=== PATIENT | female | born 1995 | race Caucasian/White ===

== ENCOUNTER → 2020-03-06 08:57 | Outpatient (CLI) | payer OTHER, SELFPAY ==
[2020-03-06 10:17] LABS: Add Manual Diff / Slide Review NO; Basophils Absolute Auto 0 /uL (0-100); Basophils Percent Auto 0.2 % (0-2); Eosinophils Absolute Auto 0 /uL (0-450); Eosinophils Percent Auto 0.3 % (2-4); Hematocrit 37.6 % (36-46); Hemoglobin 12.8 g/dL (12.0-16.0); Lymphocytes Absolute Auto 1500 /uL (1100-4500); Lymphocytes Percent Auto 19.4 % (25-40); Mean Corpuscular HGB Conc 34.1 % (30-36); Mean Corpuscular Hemoglobin 31.7 PG (26-34); Mean Corpuscular Volume 93.1 fL (80-100); Monocytes Absolute Auto 700 /uL (0-900); Monocytes Percent Auto 8.3 % (3-14); Neutrophils Absolute Auto 5600 /uL (1500-7000); Neutrophils Percent Auto 71.8 % (50-75); Platelet Count 192 X10^3/uL (150-400); Red Blood Cell Count 4.04 X10^6/uL (4.0-5.2); Red Cell Distribution Width 12.7 % (11.6-14.8); White Blood Cell Count 7.9 X10^3/uL (4.5-11.0)
[2020-03-06 11:22] LABS: Appearance Urine UA CLEAR; Bilirubin Urine UA NEGATIVE (NEGATIVE); Color Urine UA YELLOW; Glucose Urine UA NEGATIVE (Negative); Ketones Urine UA NEGATIVE (NEGATIVE); Leukocyte Esterase Urine UA NEGATIVE (NEGATIVE); Nitrite Urine UA NEGATIVE (Negative); Occult Blood Urine UA NEGATIVE (Negative); Protein Urine UA NEGATIVE (Negative); Specific Gravity Urine UA 1.015 (1.000-1.035); Urobilinogen Urine UA 0.2 E.U./dL (0.2)
[2020-03-06 11:40] LABS: pH Urine UA 7.5 (4.5-8.0)
[2020-03-06 11:42] LABS: Hepatitis B Surface Antigen NEGATIVE s/c (NEGATIVE); Rubella Antibody IgG 15.1 IU/mL (>15)
[2020-03-06 12:03] LABS: HIV 1 & 2 Ab/Ag 4th Gen Combo NEGATIVE (NEGATIVE); Hep C Virus Ab w/Reflex Quant NEGATIVE s/c (NEGATIVE)
[2020-03-06 13:01] LABS: Urine N gonorrhoeae NOT DETECTED
[2020-03-06 17:16] LABS: Urine Chlamydia NOT DETECTED
[2020-03-07 10:29] LABS: RPR Screen Non Reactive (Non Reactive); Varicella IgG Antibody 3855 index (Immune >165)
== END ==
PROVIDERS: PCP Registered Nurse; Referring Provider Specialist; Visit Provider Specialist
DX: Z34.81 Encounter for supervision of other normal pregnancy, first trimester (principal)
CPT/HCPCS: 36415; 81003; 85025; 86592; 86762; 86787; 86803; 86850; 86900; 86901; 87086; 87340; 87389; 87491; 87591

== ENCOUNTER → 2020-05-08 08:56 | Outpatient (CLI) | payer OTHER, SELFPAY ==
[2020-05-10 20:07] LABS: AFP, Serum 43.7 ng/mL (.); Calc Gestational Age Ultrasound (.); Inhibin A, Dimeric 102.85 pg/mL (.); Inhibin A, MoM 0.58 (.); Maternal Ethnicity Caucasian (.); Maternal Weight 132 lbs (.); Number of Fetuses No (.); OSBR Risk 1 IN 10000 (.); Results Report (.); Test Results *Screen Negative* (.); hCG, Serum 32168 mIU/mL (.)
== END ==
PROVIDERS: PCP Registered Nurse; Referring Provider Specialist; Visit Provider Specialist
DX: Z34.82 Encounter for supervision of other normal pregnancy, second trimester (principal); Z3A.17 17 weeks gestation of pregnancy
CPT/HCPCS: 36415; 82105; 82677; 84702; 86336

== ENCOUNTER → 2020-05-26 09:16 | Outpatient (CLI) | payer OTHER, SELFPAY ==
--- NOTE | 2020-05-26 09:17 | DI.US.S_ITS ---
PROCEDURE: US OB >= 14 WEEKS FETUS INDICATIONS: ANATOMY OUTSIDE/PRIOR DATING DATA: Last menstrual period (LMP): 01/05/2020. LMP-based estimated date of delivery (MAIKEL): 10/11/2020 . First dating scan (date and location): 03/06/2020 . Estimated date of delivery (MAIKEL) from first dating scan: 10/12/2020 . TECHNIQUE: Real-time scanning was performed of the fetus, with image documentation and biometric measurements. Endovaginal scanning: No COMPARISON: [facility], , OB >= 14 WEEKS FETUS, 05/08/2020, 8:48. FINDINGS: General: A single living intrauterine gestation is present. Presentation: Variable. Placenta: Placental position is posterior fundal , without previa. Amniotic fluid index: 14.5 cm, normal range is 5-24 cm. heart rate: 149 beats per minute. Maternal cervical canal: 4.2 cm long. Normal lower limit is 2.5 cm. biometrics: Biparietal diameter: 19 weeks 4 days Head circumference: 19 weeks 3 days Abdominal circumference: 21 weeks Femur length: 20 weeks 1 day Estimated gestational age from initial scan: 20 weeks 1 day Composite gestational age from present scan: 20 weeks 0 days Estimated weight and percentile: 355 g; 64th percentile Measurement variability for biometric dating: +/- 7 days from 14 weeks to 15 weeks 6 days gestation, +/- 10 days from 16 weeks to 21 weeks 6 days gestation, +/- 2 weeks from 22 weeks to 27 weeks 6 days gestation, +/- 3 weeks for 28 weeks gestation or later. weight reference: 4500 g or EFW >90/95% is considered macrosomia or large for gestational age. EFW <10% is small for gestational age. EFW 5% or less is considered intra-uterine growth restriction. Anatomic survey: Neuro: Ventricles are non-dilated at less than 10 mm. Cisterna magna is normal at 3-11 mm. Cerebellum is normal in size and morphology. Nuchal skin fold: Normal at less than 6 mm between 14-21 weeks gestational age. Face: Nose and lips, facial profile are normal. Spine: Suboptimally visualized. Heart: 4-chambered heart is present, with normal ventricular outflow tracts. Diaphragm: Diaphragm is intact. Stomach: Left-sided stomach is present. Kidneys: No hydronephrosis. Normal is less than 5 mm in 2nd trimester, less than 7 mm in 3rd trimester. Cord: 3-vessel cord has orthotopic insertion. Bladder: Normal in size. Extremities: All 4 extremities identified. IMPRESSION: 1. Single living intrauterine demonstrating appropriate interval growth with estimated weight at the 64th percentile. 2. spine suboptimally visualized; otherwise normal anatomy. A short-term follow-up repeat scan may be performed if clinically indicated. Dictated by: Jorge Adler [facility] Interpreted: Bob Stringer MD on 05/26/2020 at 10:42 Approved by: Bob Stringer M.D. on 05/26/2020 at 15:44
== END ==
PROVIDERS: PCP Registered Nurse; Referring Provider Specialist; Visit Provider Specialist
DX: Z34.82 Encounter for supervision of other normal pregnancy, second trimester (principal); Z3A.20 20 weeks gestation of pregnancy
CPT/HCPCS: 76811

== ENCOUNTER → 2020-06-05 10:45 | Outpatient (CLI) | payer OTHER, SELFPAY ==
--- NOTE | 2020-06-05 10:45 | DI.US.S_ITS ---
PROCEDURE: US OB FOLLOW UP INDICATIONS: RE-EVALUATE SPINE OUTSIDE/PRIOR DATING DATA: Last menstrual period (LMP): 01/05/2020. LMP-based estimated date of delivery (MAIKEL): 10/11/2020 . First dating scan (date and location): 03/06/2020 . Estimated date of delivery (MAIKEL) from first dating scan: 10/12/2020 . TECHNIQUE: Real-time scanning was performed of the fetus, with image documentation and biometric measurements. Endovaginal scanning: No COMPARISON: None. FINDINGS: General: A single living intrauterine gestation is present. Presentation: Vertex. Placenta: Placental position is posterior , without previa. Amniotic fluid index: 13.9 cm, normal range is 5-24 cm. heart rate: 153 beats per minute. Maternal cervical canal: 3.8 cm long. Normal lower limit is 2.5 cm. Estimated gestational age from initial scan: 21 weeks 4 days IMPRESSION: 1. Single living IUP redemonstrated and today's exam demonstrating normal appearance of the spine. Dictated by: Jorge Adler [facility] Interpreted: Zain Gonsalez MD on 06/05/2020 at 14:01 Approved by: Zain Gonsalez M.D. on 06/05/2020 at 16:17
== END ==
PROVIDERS: PCP Registered Nurse; Referring Provider Specialist; Visit Provider Specialist
DX: Z34.92 Encounter for supervision of normal pregnancy, unspecified, second trimester (principal); Z3A.21 21 weeks gestation of pregnancy
CPT/HCPCS: 76816

== ENCOUNTER → 2020-06-27 09:14 | Outpatient (CLI) | payer OTHER, SELFPAY ==
[2020-06-27 10:59] LABS: Hematocrit 30.8 % (36-46); Hemoglobin 10.6 g/dL (12.0-16.0)
[2020-06-27 11:13] LABS: GTT (PREG) 1 Hour PP 50gm Dose 77 mg/dL (76-139)
== END ==
PROVIDERS: PCP Registered Nurse; Referring Provider Specialist; Visit Provider Specialist
DX: Z34.02 Encounter for supervision of normal first pregnancy, second trimester (principal); Z3A.25 25 weeks gestation of pregnancy
CPT/HCPCS: 36415; 82950; 85014; 85018

== ENCOUNTER → 2020-09-18 08:38 | Outpatient (CLI) | payer OTHER, SELFPAY ==
[2020-09-19 11:34] LABS: Strep Grp B PCR NEG for Grp B Strep
== END ==
PROVIDERS: PCP Registered Nurse; Visit Provider Specialist
DX: Z34.83 Encounter for supervision of other normal pregnancy, third trimester (principal); Z3A.36 36 weeks gestation of pregnancy
CPT/HCPCS: 87653

== ENCOUNTER 2020-10-07 06:07 | Inpatient (IN) | payer OTHER, SELFPAY ==
--- NOTE | 2020-10-07 | PATH_ITS ---
[facility] Accession Number: [id number] . 01 Material submitted: . fallopian tube - BILATERAL FALLOPIAN TUBES . 02 Diagnosis: Bilateral Fallopian Tubes, Bilateral Tubal Ligation: Complete cross-sections of segments of fallopian tube x2. Negative for atypia or malignancy. [facility] 10/13/2020 1211 Local . 02 Electronically signed: . Juanis Tobin MD, Pathologist NPI- [id number] . 01 Gross description: . The specimen is received in formalin, labeled bilateral fallopian tubes and consists of two fallopian tubes measuring 6.2 cm in length by 1.4 cm in diameter and 7.1 cm in length by 1.0 cm in diameter. The serosa is pink-purple and smooth. Sectioning reveals a pink-red mucosa and a lumen measuring up to 0.7 cm in diameter. Terminal Gauger Supervisor sections of each fallopian tube are submitted to include the margin (blue), central cross-sections and bisected fimbria in cassettes A1-A4. ([id number]) /[facility] 10/08/2020 1043 Local . 02 Pathologist provided ICD-10: Z98.890, Z3A.39, Z30.2 . 02 CPT . 902798 Performed at: 01 [facility] [address], [place], [place] [id number] MD Bob Mitchell MD Phone: [phone] Performed at: 02 [facility] [address] [place], [place] [id number] MD Aliyah Raines MD Phone: [phone]
[2020-10-07 06:42] LABS: COVID19 - ADMIT (NP swab/PCR) Negative (Negative)
[2020-10-07] MEDS: LACTATED RINGERS 1,000 ML 100 ML IV ×4 (07:00→21:46)
[2020-10-07 07:07] VITALS: BP 109/74
--- NOTE | 2020-10-07 07:34 | PM.PREOP ---
Pre-operative Note COVID-19 COVID-19 status: Negative Result date/Date tested (Pos, Neg/Pending): 10/07/20 Interval Note History & Physical reviewed/Exam performed by Physician: Yes Changes to H&P: No
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
[2020-10-07] MEDS: CEFAZOLIN 1 GM VIAL 2 GM IV (07:58)
--- NOTE | 2020-10-07 08:21 | SUR.OPER ---
Supine on Padded OR bed, head on pillow, safety belt at thigh, arms secured on padded arm boards at <90 degrees abduction. Bump under right buttock. Legs uncrossed with pillow under knees, gel pad to heels, tape over blanket to lower legs.
--- NOTE | 2020-10-07 08:34 | SUR.OPER ---
Viable Female delivered at 0811, Placenta delivered. Cord Blood tubes X2 and Placenta given to L&D RN.
[2020-10-07 08:55] VITALS: BP 106/55; PULSE 64; RESP 11; TEMP 36.3; O2SAT 100
--- NOTE | 2020-10-07 09:03 | P.OP_ITS ---
Operative Date/Time/Diagnoses Date of procedure: 10/07/20 Time of procedure: 09:03 Pre-op diagnosis: 39 week gestation with prior and wish for sterilization Post-op diagnosis: same Procedure & Clinicians Procedure: Repeat low-transverse section with bilateral tubal resection Same procedure as scheduled: Yes Indications: Prior section with wish for sterilization Surgeon: Moni Pace Customer Trainer: Yashira Pickett Click Yes if Unassisted: No Anesthesia Type: Spinal Operative Notes Findings: Normal tubes, ovaries, uterus. Viable female infant weighing 7 lb 11 oz with Apgars of 8 and 9 Closure Type: primary Specimen(s): other (Bilateral fallopian tubes) Applied: catheter (Zepeda) Estimated Blood Loss (mL): 300 Blood products transfused: none Procedure in detail: The patient was brought to the operating room where she underwent a spinal for anesthesia. She was placed in a supine position with a left lateral tilt. A Zepeda catheter was placed. Pulsatile stockings were placed and functional throughout the case. 2 g of Ancef were given IV prior to the incision. Warming was in place. The patient was prepped and draped in usual sterile fashion. A low transverse incision was made with a scalpel through the prior low-transverse incision and the incision was carried down to the fascial layer which was incised transversely with scissors. The speech pathologist assistant did her side of the incision. The midline attachments are superiorly and inferiorly. Some bleeding was controlled Bovie. The rectus muscles were in the midline and the peritoneal incision was made with no damage to internal structures. The peritoneum was incised and superiorly and inferiorly. The incision was stretched with the surgeon and speech pathologist assistant placing traction. Bladder blade was placed and a bladder flap was developed and the bladder held away from the lower uterine segment. An incision was made in the uterus with the scalpel and the incision was extended with stretching. The head was elevated out of the abdomen and with fundal pressure by the speech pathologist assistant the baby was delivered. The infant was bulb suctioned for clear fluid and handed off to the warmer. Cord blood was collected. The placenta delivered spontaneously with traction. The uterus was cleaned with clean laps. The uterine incision was closed in 2 layers of 0 chromic suture the first a running locking layer the second an imbricating layer. The speech pathologist assistant was helping to expose the incision. The bladder peritoneum was repaired with 2-0 Vicryl suture. The gutters were cleaned of any remaining fluids and ovaries and tubes were observed to be normal. The Thunderbeat cautery was used to cauterize and cut across the mesosalpinx and across the fallopian tube bilaterally. Adequate hemostasis was noted. The perineum was closed with 2-0 Vicryl suture. The fascia layer was closed with 0 Vicryl suture with 2 stitches. The speech pathologist assistant repairing half the incision with helping to retract and expose the incision for the other half. The incision was irrigated and adequate hemostasis noted. The incision was closed with interrupted 3-0 Vicryl sutures and then a subcuticular stitch of 4-0 Vicryl sutu re. Steri-Strips were placed. The uterus was massaged to remove any clots. The patient went to recovery room in good condition. Counts of instruments and sponges were correct. Dr. Pickett was present throughout the case to assist with retraction, fundal pressure to deliver the infant, and suturing half the fascia. Complications: none Post-operative Condition: stable Disposition: other ( Center) Plan for aftercare: Routine post section
[2020-10-07 09:05] VITALS: BP 106/58; PULSE 93; RESP 16; O2SAT 97
[2020-10-07 09:10] VITALS: BP 106/56; PULSE 67; RESP 15; O2SAT 98
[2020-10-07 09:17] VITALS: BP 113/64; PULSE 77; RESP 16; TEMP 36.3; O2SAT 98
[2020-10-07 12:05] VITALS: BP 98/57; PULSE 70; RESP 16; TEMP 37.2
[2020-10-07] MEDS: ONDANSETRON 4 MG/2 ML INJ IV (12:06)
[2020-10-07] MEDS: KETOROLAC 30 MG/ML VIAL IV ×2 (15:30→21:46)
[2020-10-08] MEDS: KETOROLAC 30 MG/ML VIAL IV (03:54)
[2020-10-08] MEDS: ACETAMINOPHEN 325 MG TABLET 650 MG PO ×2 (05:52→12:10)
[2020-10-08 06:05] LABS: Add Manual Diff / Slide Review NO; Basophils Absolute Auto 0 /uL (0-100); Basophils Percent Auto 0.2 % (0-2); Eosinophils Absolute Auto 0 /uL (0-450); Eosinophils Percent Auto 0.1 % (2-4); Hematocrit 30.1 % (36-46); Hemoglobin 10.2 g/dL (12.0-16.0); Lymphocytes Absolute Auto 1500 /uL (1100-4500); Lymphocytes Percent Auto 14.1 % (25-40); Mean Corpuscular HGB Conc 33.7 % (30-36); Mean Corpuscular Hemoglobin 32.5 PG (26-34); Mean Corpuscular Volume 96.3 fL (80-100); Monocytes Absolute Auto 900 /uL (0-900); Monocytes Percent Auto 7.9 % (3-14); Neutrophils Absolute Auto 8400 /uL (1500-7000); Neutrophils Percent Auto 77.7 % (50-75); Platelet Count 148 X10^3/uL (150-400); Red Blood Cell Count 3.13 X10^6/uL (4.0-5.2); Red Cell Distribution Width 13.1 % (11.6-14.8); White Blood Cell Count 10.9 X10^3/uL (4.5-11.0)
[2020-10-08] MEDS: IBUPROFEN 600 MG TABLET PO ×2 (09:24→14:58)
[2020-10-08] MEDS: DOCUSATE 250 MG CAPSULE PO (09:24)
--- NOTE | 2020-10-08 15:54 | P.DS_ITS ---
Discharge Providers Provider Date of admission: 10/07/20 06:07 Discharge Date: 10/08/20 Primary care physician: LISA Jara Consults: 10/07/20 09:05 Consult to Binding Folder Machine Routine Comment: Discharge provider: Moni Pace MD Summary Hospital Course Date Patient Seen: 10/08/20 Time Patient Seen: 15:54 Diagnoses: Previous section at 39 weeks with wish for sterilization Hospital Course: Patient underwent a repeat low-transverse section with bilateral tubal resection on 10/07/2020. Patient is doing well not taking any narcotic pain medicine. She is urinating and ambulating well. She is passing gas. She is breast-feeding without difficulty. Peripartum Data Infant Delivery Method: Section (Repeat) Procedures: Repeat low-transverse section with bilateral tubal resection complications: none [place] 1: Gender: Female Disposition of : home Discharge Diagnosis (1) Delivery by section using transverse incision of lower segment of uterus: Status: Acute (2) Sterilization: Status: Acute Status at Discharge Cognitive/behavioral status at discharge: oriented Functional status at discharge: independent ambulation Overall status at discharge: patient is progressing back to baseline Time Spent with Patient Time attestation: Total time spent providing and/or coordinating discharge services: Objective Labs Result Diagrams: 10/08/20 05:47 Labs: Laboratory Results - last 24 hr 10/08/20 05:47 WBC 10.9 RBC 3.13 L Hgb 10.2 L Hct 30.1 L MCV 96.3 MCH 32.5 MCHC 33.7 RDW 13.1 Plt Count 148 L Neut % (Auto) 77.7 H Lymph % (Auto) 14.1 L [place] % (Auto) 7.9 Eos % (Auto) 0.1 L Baso % (Auto) 0.2 Neut # (Auto) 8400 H Lymph # (Auto) 1500 [place] # (Auto) 900 Eos # (Auto) 0 Baso # (Auto) 0 Exam Vital Signs (past 8 hours): Blood pressure 126/70, pulse of 90, temperature 97.6? Oxygen Delivery Method Room Air Narrative Exam Narrative: Abdomen is soft, nontender. Uterus is firm, at U, nontender. Dressing is clean, dry, intact. Mild lochia. Extremities without edema and nontender. Patient is Rh positive, rubella immune, received Tdap in the 3rd trimester. Discharge Plan Discharge Plan Patient Disposition: Home Discharge orders & Medications Prescriptions: New ibuprofen 600 mg Tablet 600 mg PO Q6H PRN (Reason: Fever/Mild Pain (1-3)) Qty: 30 RF: 0 Continued prenat.vits,chinedu,npn-gycq-luwgh Tablet 1 tab PO DAILY RF: 0 Follow up/Referrals: Moni Pace MD [Physician] - (Appointment with on Saturday, October 14 at 8:45 AM for aquacell removal and a 4 week appointment on Tuesday, October at 2PM.) Dallas Rodrigues ARNP [Primary Care Provider] - Diet/Activity/Treatments Diet: Regular Activity: Nothing in vagina or lifting over 20 lb for 6 weeks Skin/Wound/Dressing Care Report to your healthcare provider any signs of infection, such as:: chills, fever and increased pain Dressing: Leave dressing in place until 1 week postop appointment Visit Report/Discharge Packet Instructions: Discharge Data Primary Care Provider: Dallas Rodrigues
== END 2020-10-08 16:56 | disposition home or self-care (01) | DRG 785 ==
PROVIDERS: Admitting Provider Specialist; PCP Registered Nurse; Referring Provider Specialist; Visit Provider Specialist
PROC: 10D00Z1 Extraction of Products of Conception, Low, Open Approach (ICD-10-PCS; CPT 59514; principal; 2020-10-07 07:45)
DX: O34.219 Maternal care for unspecified type scar from previous cesarean delivery (principal); Z3A.39 39 weeks gestation of pregnancy; Z37.0 Single live birth; Z30.2 Encounter for sterilization; Z20.822 Contact with and (suspected) exposure to COVID-19
CPT/HCPCS: 36415; 58611; 59050; 59510; 59514; 85025; 87635; C9803; J0690; J1100; J1885; J2250; J2274; J2405; J2590; J2704

== ENCOUNTER → 2021-02-06 10:19 | Outpatient (CLI) | payer OTHER, SELFPAY ==
--- NOTE | 2021-02-06 10:20 | DI.RAD.S_ITS ---
PROCEDURE: XR FINGER LT MIN 2V INDICATIONS: left pinky pain TECHNIQUE: PA hand, 2 views of the small finger acquired. COMPARISON: None. FINDINGS: Bones: No acute fractures or dislocations. No suspicious bony lesions. Soft tissues: No suspicious soft tissue calcifications. IMPRESSION: No acute osseous abnormality. If the symptoms persist, consider cross sectional imaging such as MRI or CT for further assessment. Dictated by: Nj Moore M.D. on 02/06/2021 at 10:54 Approved by: Nj Moore M.D. on 02/06/2021 at 10:55
[2021-02-06 10:54] LABS: Add Manual Diff / Slide Review NO; Basophils Absolute Auto 0 /uL (0-100); Basophils Percent Auto 0.3 % (0-2); Eosinophils Absolute Auto 0 /uL (0-450); Eosinophils Percent Auto 0.5 % (2-4); Hematocrit 41.2 % (36-46); Hemoglobin 13.7 g/dL (12.0-16.0); Lymphocytes Absolute Auto 2200 /uL (1100-4500); Lymphocytes Percent Auto 35.5 % (25-40); Mean Corpuscular HGB Conc 33.2 % (30-36); Mean Corpuscular Hemoglobin 30.6 PG (26-34); Mean Corpuscular Volume 92.1 fL (80-100); Monocytes Absolute Auto 500 /uL (0-900); Monocytes Percent Auto 8.9 % (3-14); Neutrophils Absolute Auto 3300 /uL (1500-7000); Neutrophils Percent Auto 54.8 % (50-75); Platelet Count 237 X10^3/uL (150-400); Red Blood Cell Count 4.47 X10^6/uL (4.0-5.2); Red Cell Distribution Width 13.4 % (11.6-14.8); White Blood Cell Count 6.1 X10^3/uL (4.5-11.0)
[2021-02-06 11:09] LABS: Alanine Aminotransferase 22 IU/L (<35); Albumin 4.5 g/dL (3.5-5.0); Albumin Globulin Ratio 1.6 (1.0-2.8); Alkaline Phosphatase 38 U/L (38-126); Aspartate Aminotransferase 25 IU/L (14-36); BUN Creatinine Ratio 23.9 (6-22); Bilirubin Total 1.2 mg/dL (0.2-1.3); Blood Urea Nitrogen 17 mg/dL (7-17); Calcium 9.6 mg/dL (8.4-10.2); Carbon Dioxide 30 mmol/L (22-32); Chloride 108 mmol/L (98-107); Estimated Glomerular Filt Rate > 60.0 mL/min (>60); Globulin 2.9 g/dL (1.7-4.1); Glucose 62 mg/dL (70-100); HEMOLYSIS < 15 (0-50); Potassium 4.2 mmol/L (3.4-5.1); Sodium 142 mmol/L (137-145); Total Protein 7.4 g/dL (6.3-8.2)
[2021-02-06 13:56] LABS: TSH w/ Reflex to FT4 1.11 uIU/mL (0.47-4.68)
== END ==
PROVIDERS: PCP Registered Nurse; Referring Provider Registered Nurse; Visit Provider Registered Nurse
DX: R53.83 Other fatigue (principal)
CPT/HCPCS: 36415; 73140; 80053; 84443; 85025

== ENCOUNTER → 2021-03-02 17:06 | Outpatient (CLI) | payer OTHER, SELFPAY ==
--- NOTE | 2021-03-02 17:07 | DI.MRI.S_ITS ---
PROCEDURE: MR HAND LT WO CON INDICATIONS: Left pinky pain TECHNIQUE: Noncontrast coronal T1 spin echo and T2 fast spin echo with fat saturation, axial proton density fast spin echo and T2 fast spin echo with fat saturation, sagittal T1 spin echo and STIR through the hand and fingers. COMPARISON: None. FINDINGS: Image quality: Excellent. Bones: The bones are normally aligned, without marrow contusions or fractures. No intra-osseous lesions. Interphalangeal joint(s): The accessory and proper collateral ligaments appear intact. The volar plate demonstrates normal morphology. The extensor central slips appear intact on sagittal images. Metacarpophalangeal joint(s): The accessory and proper collateral ligaments appear intact, as well as the volar plate and adjacent deep transverse metacarpal ligaments. The sagittal bands of the extensor garcia appear normal. Extensor apparatus: The central slips insert normally on the middle phalangeal base. The conjoint and terminal tendons insert normally on the distal phalangeal bases. More proximal portions of the extensor tendons also appear normal. Flexor apparatus: The flexor digitorum superficialis and profundus tendons both appear intact. All annular and cruciform pulleys appear intact, without adjacent soft tissue edema. Soft tissues: Visualized muscles demonstrate normal bulk and internal signal. No intramuscular masses identified. No ganglion cysts. IMPRESSION: No significant abnormality. Dictated by: Prieto Romeo M.D. on 03/03/2021 at 7:58 Approved by: Prieto Romeo M.D. on 03/03/2021 at 8:06
== END ==
PROVIDERS: PCP Registered Nurse; Referring Provider Registered Nurse; Visit Provider Registered Nurse
DX: M79.645 Pain in left finger(s) (principal)
CPT/HCPCS: 73218

== ENCOUNTER → 2021-03-27 17:54 | Outpatient (CLI) | payer OTHER, SELFPAY | PROVIDERS: PCP Registered Nurse; Referring Provider Internal Medicine; Visit Provider Internal Medicine | DX: Z23 Encounter for immunization (principal) | CPT/HCPCS: 90471; 90686 ==

== ENCOUNTER → 2021-12-15 09:24 | Outpatient (CLI) | payer OTHER, SELFPAY ==
[2021-12-15 10:07] LABS: Add Manual Diff / Slide Review NO; Basophils Absolute Auto 0 /uL (0-100); Basophils Percent Auto 0.3 % (0-2); Eosinophils Absolute Auto 0 /uL (0-450); Eosinophils Percent Auto 0.5 % (2-4); Hematocrit 38.8 % (36-46); Hemoglobin 13.2 g/dL (12.0-16.0); Lymphocytes Absolute Auto 1700 /uL (1100-4500); Lymphocytes Percent Auto 29.9 % (25-40); Mean Corpuscular Hemoglobin 30.9 PG (26-34); Mean Corpuscular Volume 90.8 fL (80-100); Monocytes Absolute Auto 400 /uL (0-900); Monocytes Percent Auto 7.8 % (3-14); Neutrophils Absolute Auto 3500 /uL (1500-7000); Neutrophils Percent Auto 61.5 % (50-75); Platelet Count 198 X10^3/uL (150-400); Red Blood Cell Count 4.27 X10^6/uL (4.0-5.2); Red Cell Distribution Width 12.7 % (11.6-14.8); White Blood Cell Count 5.7 X10^3/uL (4.5-11.0)
[2021-12-15 10:19] LABS: C-Reactive Protein Quant < 0.5 mg/dL (<1.0)
[2021-12-15 10:21] LABS: Erythrocyte Sedimentation Rate 5 MM/HR (0-20)
[2021-12-15 10:31] LABS: Rheumatoid Factor < 8.6 IU/mL (<12.0)
[2021-12-15 10:49] LABS: TSH w/ Reflex to FT4 0.08 uIU/mL (0.47-4.68)
[2021-12-15 11:30] LABS: Free T4, Direct Thyroxine 0.92 ng/dL (0.78-2.19)
[2021-12-17 13:33] LABS: ANA Screen, IFA Negative (.)
== END ==
PROVIDERS: PCP Family Medicine; Referring Provider Family Medicine; Visit Provider Family Medicine
DX: F41.9 Anxiety disorder, unspecified (principal); M79.645 Pain in left finger(s); M79.89 Other specified soft tissue disorders
CPT/HCPCS: 36415; 84439; 84443; 85025; 85651; 86038; 86140; 86430

== ENCOUNTER → 2022-01-06 08:29 | Outpatient (CLI) | payer OTHER, SELFPAY ==
[2022-01-06 11:04] LABS: TSH w/ Reflex to FT4 0.99 uIU/mL (0.47-4.68)
[2022-01-07 18:20] LABS: Anti Thyroglobulin Antibody <1.0 IU/mL (0.0-0.9); Thyroid Peroxidase Antibodies 8 IU/mL (0-34)
== END ==
PROVIDERS: PCP Family Medicine; Referring Provider Family Medicine; Visit Provider Family Medicine
DX: F41.9 Anxiety disorder, unspecified (principal); R79.89 Other specified abnormal findings of blood chemistry
CPT/HCPCS: 36415; 84443; 86376; 86800

== ENCOUNTER → 2022-04-24 10:57 | Outpatient (CLI) | payer OTHER, SELFPAY ==
[2022-04-24 12:04] LABS: Add Manual Diff / Slide Review NO; Basophils Absolute Auto 0 /uL (0-100); Basophils Percent Auto 0.3 % (0-2); Eosinophils Absolute Auto 100 /uL (0-450); Eosinophils Percent Auto 1.3 % (2-4); Hematocrit 38.9 % (36-46); Hemoglobin 12.8 g/dL (12.0-16.0); Lymphocytes Absolute Auto 1800 /uL (1100-4500); Lymphocytes Percent Auto 34.5 % (25-40); Mean Corpuscular HGB Conc 32.9 % (30-36); Mean Corpuscular Volume 91.2 fL (80-100); Monocytes Absolute Auto 400 /uL (0-900); Monocytes Percent Auto 8.5 % (3-14); Neutrophils Absolute Auto 2900 /uL (1500-7000); Neutrophils Percent Auto 55.4 % (50-75); Platelet Count 194 X10^3/uL (150-400); Red Blood Cell Count 4.26 X10^6/uL (4.0-5.2); Red Cell Distribution Width 12.5 % (11.6-14.8); White Blood Cell Count 5.2 X10^3/uL (4.5-11.0)
[2022-04-24 14:26] LABS: Alanine Aminotransferase 22 IU/L (<35); Albumin 4.4 g/dL (3.5-5.0); Albumin Globulin Ratio 1.6 (1.0-2.8); Alkaline Phosphatase 36 U/L (38-126); Aspartate Aminotransferase 24 IU/L (14-36); BUN Creatinine Ratio 17.2 (6-22); Bilirubin Total 1.2 mg/dL (0.2-1.3); Blood Urea Nitrogen 11 mg/dL (7-17); Calcium 9.1 mg/dL (8.4-10.2); Carbon Dioxide 29 mmol/L (22-32); Chloride 103 mmol/L (98-107); Estimated Glomerular Filt Rate > 60 mL/min (>60); Globulin 2.8 g/dL (1.7-4.1); Glucose 82 mg/dL (70-100); HEMOLYSIS < 15 (0-50); Potassium 3.9 mmol/L (3.4-5.1); Sodium 140 mmol/L (137-145); Total Protein 7.2 g/dL (6.3-8.2)
[2022-04-24 14:51] LABS: TSH w/ Reflex to FT4 0.88 uIU/mL (0.47-4.68)
== END ==
PROVIDERS: PCP Family Medicine; Referring Provider Family Medicine; Visit Provider Family Medicine
DX: D64.9 Anemia, unspecified (principal); L65.9 Nonscarring hair loss, unspecified; R53.83 Other fatigue
CPT/HCPCS: 36415; 80053; 84443; 85025

== ENCOUNTER → 2022-06-04 08:49 | Outpatient (CLI) | payer OTHER, SELFPAY ==
[2022-06-09 08:28] LABS: Percent Free Testosterone 1.84 % (0.50-2.80); Testosterone Free 0.29 ng/dL (0.10-0.85); Testosterone Total 15.8 ng/dL (10.0-55.0)
[2022-06-09 20:07] LABS: Estrogen 391 pg/mL (.)
[2022-06-17 06:36] LABS: % Free Progesterone 1.9 % (.); Progesterone, Serum 21 ng/dL (.)
== END ==
PROVIDERS: PCP Family Medicine; Referring Provider Family Medicine; Visit Provider Family Medicine
DX: Z30.2 Encounter for sterilization (principal)
CPT/HCPCS: 36415; 82627; 82672; 84144; 84402; 84403; 84999

== ENCOUNTER → 2023-07-15 09:05 | Outpatient (CLI) | payer OTHER, SELFPAY ==
[2023-07-15 10:12] LABS: Add Manual Diff / Slide Review NO; Basophils Absolute Auto 0 /uL (0-100); Basophils Percent Auto 0.4 % (0-2); Eosinophils Absolute Auto 100 /uL (0-450); Eosinophils Percent Auto 1.5 % (2-4); Hematocrit 36.5 % (36-46); Hemoglobin 12.3 g/dL (12.0-16.0); Lymphocytes Absolute Auto 1600 /uL (1100-4500); Lymphocytes Percent Auto 30.9 % (25-40); Mean Corpuscular HGB Conc 33.6 % (30-36); Mean Corpuscular Hemoglobin 30.8 PG (26-34); Mean Corpuscular Volume 91.6 fL (80-100); Monocytes Absolute Auto 500 /uL (0-900); Monocytes Percent Auto 8.8 % (3-14); Neutrophils Absolute Auto 3100 /uL (1500-7000); Neutrophils Percent Auto 58.4 % (50-75); Platelet Count 192 X10^3/uL (150-400); Red Blood Cell Count 3.99 X10^6/uL (4.0-5.2); Red Cell Distribution Width 13.3 % (11.6-14.8); White Blood Cell Count 5.3 X10^3/uL (4.5-11.0)
[2023-07-15 10:23] LABS: Hemoglobin A1C% w Est Avg Glu 5.2 % (4.0-6.0)
[2023-07-15 10:28] LABS: Alanine Aminotransferase 19 IU/L (<35); Albumin 4.4 g/dL (3.5-5.0); Albumin Globulin Ratio 1.5 (1.0-2.8); Alkaline Phosphatase 41 U/L (38-126); Aspartate Aminotransferase 24 IU/L (14-36); BUN Creatinine Ratio 16.9 (6-22); Bilirubin Total 1.4 mg/dL (0.2-1.3); Blood Urea Nitrogen 11 mg/dL (7-17); Carbon Dioxide 26 mmol/L (22-32); Chloride 105 mmol/L (98-107); Cholesterol 149 mg/dL (140-199); Estimated Glomerular Filt Rate > 60 mL/min (>60); Globulin 2.9 g/dL (1.7-4.1); Glucose 88 mg/dL (70-100); HDL Cholesterol 60 mg/dL (40-60); HEMOLYSIS < 15 (0-50); LDL Cholesterol Calculated 83 mg/dL (<100); Sodium 140 mmol/L (137-145); Total Protein 7.3 g/dL (6.3-8.2); Triglycerides 31 mg/dL (35-150)
[2023-07-15 10:45] LABS: Vitamin D 25 Hydroxy (D3) 45.9 ng/mL (30.0-100.0)
[2023-07-15 10:58] LABS: TSH w/ Reflex to FT4 1.14 uIU/mL (0.47-4.68)
[2023-07-15 11:17] LABS: Vitamin B12 Reflex MMA if <400 766 pg/mL (239-931)
[2023-07-16 08:32] LABS: Apolipoprotein B 59 mg/dL (<90)
[2023-07-17 08:20] LABS: Insulin Level Total 2.2 uIU/mL (2.6-24.9)
[2023-07-18 14:16] LABS: Lipoprotein (a) 49.3 nmol/L (<75.0)
== END ==
LOC: LAB 09:06
PROVIDERS: PCP Family Medicine; Referring Provider Family Medicine; Visit Provider Family Medicine
DX: Z00.00 Encounter for general adult medical examination without abnormal findings (principal); F41.9 Anxiety disorder, unspecified; Z83.438 Family history of other disorder of lipoprotein metabolism and other lipidemia; Z80.0 Family history of malignant neoplasm of digestive organs; Z82.49 Family history of ischemic heart disease and other diseases of the circulatory system
CPT/HCPCS: 36415; 80053; 80061; 82172; 82306; 82607; 83036; 83525; 83695; 84443; 85025